=== PATIENT | female | born 1945 | race American Indian/Alaskan Native ===

== ENCOUNTER 2017-11-24 19:15 | Emergency (ER) | payer MEDICARE ==
[2017-11-24 20:14] LABS: Basophils % (Auto) 0.4 % (0.0-1.8); Eosinophils # (Auto) 0.1 K/mm3 (0.0-0.4); Eosinophils % (Auto) 0.6 % (0.0-4.3); Hematocrit 38.9 % (30.3-42.9); Hemoglobin 13.5 gm/dl (10.1-14.3); Lymphocytes # (Auto) 2.1 K/mm3 (1.2-5.4); Lymphocytes % (Auto) 16.4 % (13.4-35.0); Mean Corpuscular HGB Conc 35 % (30-34); Mean Corpuscular Hemoglobin 31 pg (28-32); Mean Corpuscular Volume 91 fl (79-97); Monocytes # (Auto) 0.7 K/mm3 (0.0-0.8); Monocytes % (Auto) 5.5 % (0.0-7.3); Platelet Count 212 K/mm3 (140-440); Red Blood Count 4.29 M/mm3 (3.65-5.03); Red Cell Distribution Width 13.6 % (13.2-15.2)
[2017-11-24 20:27] LABS: Albumin 4.2 g/dL (3.9-5); Calcium 9.7 mg/dL (8.4-10.2)
[2017-11-25 00:58] LABS: Bilirubin,Urine NEG (Negative); Blood,Urine NEG (Negative); Color,Urine Yellow (Yellow); Hyaline Casts,Urine 4 /LPF; Mucus,Urine FEW /HPF; Protein,Urine <15 mg/dL mg/dL (Negative); Urobilinogen,Urine < 2.0 mg/dL (<2.0)
--- NOTE | 2017-11-25 02:40 | Emergency Department Report ---
ED Abdominal Pain HPI - General Chief Complaint: Abdominal Pain Stated Complaint: ABD PAIN Time Seen by Provider: 11/25/17 02:40 Source: patient Mode of arrival: Wheelchair Limitations: No Limitations - History of Present Illness Initial Comments: Patient presents with primary complaint of constipation. She had taken some Ex- Lax earlier in the day to help stimulate, and she routinely takes stool softeners, but had not had any passage of bowel movement after taking Ex-Lax, and came in for additional treatment, but while waiting for examination, she had a good bowel movement with relief of her discomfort. She's had a history of recurrent constipation, for which she takes stool softeners, and then takes a stimulant whenever she feels the need. She's not had any fever chills or diaphoresis, no nausea or vomiting, and no other difficulty. Since she is spontaneously had a bowel movement, which was firm, brown, without blood, and with significant relief of discomfort, she feels ready to go. When offered medication for nausea or pain, she accepts offer for some analgesia. -: Gradual, days(s) Location: periumbilical (lower abdomen) Radiation: none Severity scale (0 -10): 5 Quality: cramping, aching Improves With: bowel movement Worsens With: nothing Associated Symptoms: denies other symptoms - Related Data Home Medications Medication Instructions Recorded Confirmed Last Taken Aspirin 81 mg PO QAM 11/25/17 11/25/17 Unknown AtorvaSTATin [Lipitor] 10 mg PO QHS 11/25/17 11/25/17 Unknown Hydrochlorothiazide [HCTZ] 25 mg PO DAILY 11/25/17 11/25/17 Unknown Levothyroxine Sodium 88 mcg PO DAILY 11/25/17 11/25/17 Unknown Lisinopril [Zestril TAB] 20 mg PO DAILY 11/25/17 11/25/17 Unknown Metoprolol Succinate 100 mg PO DAILY 11/25/17 11/25/17 Unknown amLODIPine [Norvasc] 10 mg PO DAILY 11/25/17 11/25/17 Unknown cloNIDine [Catapres] 0.1 mg PO DAILY 11/25/17 11/25/17 Unknown Previous Rx's Medication Instructions Recorded Last Taken Type Nitrofurantoin Monohyd/M-Cryst 100 mg PO BID #14 cap 11/25/17 Unknown Rx [Macrobid 100 mg Capsule] traMADol [Ultram 50 MG tab] 50 mg PO Q6HR PRN #10 tablet 11/25/17 Unknown Rx Allergies Allergy/AdvReac Type Severity Reaction Status Date / Time No Known Allergies Allergy Verified 11/24/17 19:44 ED Review of Systems ROS: Stated complaint: ABD PAIN Other details as noted in HPI Comment: All other systems reviewed and negative Constitutional: no symptoms reported ENT: denies: ear pain, throat pain Respiratory: denies: cough, shortness of breath, wheezing Cardiovascular: denies: chest pain, palpitations Endocrine: no symptoms reported Gastrointestinal: abdominal pain (lower abdomen), constipation. denies: hematemesis, melena, hematochezia Genitourinary: denies: urgency, dysuria, discharge Musculoskeletal: denies: back pain, joint swelling, arthralgia Skin: denies: rash, lesions Neurological: denies: headache, weakness, paresthesias Psychiatric: denies: anxiety, depression ED Past Medical Hx - Past Medical History Previous Medical History?: Yes Hx Hypertension: Yes Additional medical history: kidney and thyroid disease - Surgical History Additional Surgical History: thyroid - Social History Smoking Status: Never Smoker Substance Use Type: None - Medications Home Medications: Home Medications Medication Instructions Recorded Confirmed Last Taken Type Aspirin 81 mg PO QAM 11/25/17 11/25/17 Unknown History AtorvaSTATin [Lipitor] 10 mg PO QHS 11/25/17 11/25/17 Unknown History Hydrochlorothiazide [HCTZ] 25 mg PO DAILY 11/25/17 11/25/17 Unknown History Levothyroxine Sodium 88 mcg PO DAILY 11/25/17 11/25/17 Unknown History Lisinopril [Zestril TAB] 20 mg PO DAILY 11/25/17 11/25/17 Unknown History Metoprolol Succinate 100 mg PO DAILY 11/25/17 11/25/17 Unknown History Nitrofurantoin Monohyd/M-Cryst 100 mg PO BID #14 cap 11/25/17 Unknown Rx [Macrobid 100 mg Capsule] amLODIPine [Norvasc] 10 mg PO DAILY 11/25/17 11/25/17 Unknown History cloNIDine [Catapres] 0.1 mg PO DAILY 11/25/17 11/25/17 Unknown History traMADol [Ultram 50 MG tab] 50 mg PO Q6HR PRN #10 tablet 11/25/17 Unknown Rx ED Physical Exam - General Limitations: No Limitations General appearance: in no apparent distress - Head Head exam: Present: atraumatic, normocephalic - Eye Eye exam: Present: normal appearance - Neck Neck exam: Present: normal inspection - Respiratory Respiratory exam: Present: normal lung sounds bilaterally. Absent: respiratory distress, wheezes, rales, rhonchi - Cardiovascular Cardiovascular Exam: Present: regular rate, normal heart sounds - GI/Abdominal GI/Abdominal exam: Present: soft - Rectal Rectal exam: Present: deferred (patient declined offer for rectal examination to rule out impaction) - Extremities Exam Extremities exam: Present: normal inspection - Back Exam Back exam: Present: normal inspection - Neurological Exam Neurological exam: Present: alert, oriented X3, CN II-XII intact - Psychiatric Psychiatric exam: Present: normal affect, normal mood - Skin Skin exam: Present: warm, dry ED Course Vital Signs 11/24/17 11/25/17 19:44 00:34 Temperature 98 F 98.1 F Pulse Rate 77 86 Respiratory 16 17 Rate Blood Pressure 141/63 Blood Pressure 159/72 [Left] O2 Sat by Pulse 98 100 Oximetry ED Medical Decision Making - Lab Data Result diagrams: 11/24/17 19:56 11/24/17 19:56 - Medical Decision Making Patient has had relief of her primary complaint, that of constipation, with production of a good solid bowel movement, although we have found a urinary tract infection, and we'll treat with Macrodantin, as patient reports that she has some decreased kidney function, and prefers to avoid Bactrim. Initial dose of Macrobid given in emergency department. She was also given a dose of bentyl for discomfort - Differential Diagnosis constipation, Critical Care Time: No Critical care attestation.: If time is entered above; I have spent that time in minutes in the direct care of this critically ill patient, excluding procedure time. ED Disposition Clinical Impression: Constipation Qualifiers: Constipation type: unspecified constipation type Qualified Code(s): K59.00 - Constipation, unspecified UTI (urinary tract infection) Qualifiers: Urinary tract infection type: acute cystitis Disposition: TO HOME OR SELFCARE Is pt being admited?: No Does the pt Need Aspirin: No Condition: Stable Instructions: Abdominal Pain (ED) Prescriptions: Nitrofurantoin Monohyd/M-Cryst [Macrobid 100 mg Capsule] 100 mg PO BID #14 cap traMADol [Ultram 50 MG tab] 50 mg PO Q6HR PRN #10 tablet PRN Reason: Pain Referrals: PRIMARY CARE,MD [Primary Care Provider] - 3-5 Days Time of Disposition: 02:50
[2017-11-25] MEDS ORDERED: BENTYL PO ONE (02:52)
[2017-11-25] MEDS ORDERED: MACROBID PO ONE (02:52)
[2017-11-25 03:02] VITALS: BP 146/74
== END 2017-11-25 03:03 | disposition home or self-care (01) ==
LOC: ED 19:15
DX: N39.0 Urinary tract infection, site not specified (principal); K59.00 Constipation, unspecified; I10 Essential (primary) hypertension; Z79.82 Long term (current) use of aspirin
CPT/HCPCS: 36415; 80053; 81001; 85025; 99283

== ENCOUNTER 2019-10-28 09:20 | Emergency (ER) | payer MEDICARE ==
--- NOTE | 2019-10-28 09:33 | Emergency Department Report ---
ED Fall HPI - General Stated Complaint: FALL Time Seen by Provider: 10/28/19 09:27 Source: patient, EMS Mode of arrival: Stretcher Limitations: No Limitations - History of Present Illness Initial Comments: Mrs. Mills is a 74-year-old female with a history of hypertension, chronic kidney disease, dyslipidemia and thyroid disease who presents after a ground- level fall. She was walking in a grocery store parking lot when she tripped and fell. She fell straight onto her face without loss of consciousness. She has a bloody lip. Her top dentures were damage as result of the impact. She denies neck pain. She denies loss of consciousness. She has mild headache. She also has right knee pain. She was transported by EMS. Her drove her to the grocery store. He witnessed the fall. MD Complaint: fall -: Sudden, This morning Fall From: standing When Fall Occurred: just prior to arrival Fall Witnessed: yes, by family Place Fall Occurred: other (Grocery store parking lot) Loss of Consciousness: none Prolonged Down Time?: no Symptoms Prior to Fall: none Location: head, face, other (Right knee) Location - Extremities: Right: Knee Severity: mild Context: tripped/slipped Associated Symptoms: headache - Related Data Home Medications Medication Instructions Recorded Confirmed Last Taken Aspirin 81 mg PO QAM 11/25/17 11/25/17 Unknown AtorvaSTATin [Lipitor] 10 mg PO QHS 11/25/17 11/25/17 Unknown Levothyroxine Sodium 88 mcg PO DAILY 11/25/17 11/25/17 Unknown Metoprolol Succinate 100 mg PO DAILY 11/25/17 11/25/17 Unknown amLODIPine 10 mg PO DAILY 11/25/17 11/25/17 Unknown cloNIDine [Catapres] 0.1 mg PO DAILY 11/25/17 11/25/17 Unknown hydroCHLOROthiazide [HCTZ] 25 mg PO DAILY 11/25/17 11/25/17 Unknown lisinopriL [Zestril TAB] 20 mg PO DAILY 11/25/17 11/25/17 Unknown Previous Rx's Medication Instructions Recorded Last Taken Type Nitrofurantoin Monohyd/M-Cryst 100 mg PO BID #14 cap 11/25/17 Unknown Rx [Macrobid 100 mg Capsule] traMADoL [Ultram 50 MG tab] 50 mg PO Q6HR PRN #10 tablet 11/25/17 Unknown Rx Allergies Allergy/AdvReac Type Severity Reaction Status Date / Time No Known Allergies Allergy Verified 10/28/19 09:55 ED Review of Systems ROS: Stated complaint: FALL Other details as noted in HPI Constitutional: denies: fever, malaise Respiratory: denies: cough, shortness of breath Cardiovascular: denies: chest pain Gastrointestinal: denies: abdominal pain, nausea, vomiting Skin: lesions Neurological: headache ED Past Medical Hx - Past Medical History Previous Medical History?: Yes Hx Hypertension: Yes Additional medical history: kidney and thyroid disease - Surgical History Additional Surgical History: thyroid - Social History Smoking Status: Never Smoker Substance Use Type: None - Medications Home Medications: Home Medications Medication Instructions Recorded Confirmed Last Taken Type Aspirin 81 mg PO QAM 11/25/17 11/25/17 Unknown History AtorvaSTATin [Lipitor] 10 mg PO QHS 11/25/17 11/25/17 Unknown History Levothyroxine Sodium 88 mcg PO DAILY 11/25/17 11/25/17 Unknown History Metoprolol Succinate 100 mg PO DAILY 11/25/17 11/25/17 Unknown History Nitrofurantoin Monohyd/M-Cryst 100 mg PO BID #14 cap 11/25/17 Unknown Rx [Macrobid 100 mg Capsule] amLODIPine 10 mg PO DAILY 11/25/17 11/25/17 Unknown History cloNIDine [Catapres] 0.1 mg PO DAILY 11/25/17 11/25/17 Unknown History hydroCHLOROthiazide [HCTZ] 25 mg PO DAILY 11/25/17 11/25/17 Unknown History lisinopriL [Zestril TAB] 20 mg PO DAILY 11/25/17 11/25/17 Unknown History traMADoL [Ultram 50 MG tab] 50 mg PO Q6HR PRN #10 tablet 11/25/17 Unknown Rx ED Physical Exam - General General appearance: alert, in no apparent distress - Head Head exam: Present: normocephalic, other (Abrasion upper lip edematous lip without laceration mildly edematous nose 3 x 4 cm frontal hematoma) - Eye Eye exam: Present: normal appearance - ENT ENT exam: Present: mucous membranes moist - Neck Neck exam: Present: normal inspection, full ROM. Absent: tenderness, meningismus, other - Respiratory Respiratory exam: Present: normal lung sounds bilaterally. Absent: respiratory distress, wheezes, rales, rhonchi - Cardiovascular Cardiovascular Exam: Present: regular rate, normal rhythm, normal heart sounds. Absent: systolic murmur, diastolic murmur, rubs, gallop - GI/Abdominal GI/Abdominal exam: Present: soft. Absent: distended, tenderness, guarding, rebound - Extremities Exam Extremities exam: Present: other (Right knee mildly edematous with small abrasion) - Neurological Exam Neurological exam: Present: alert, oriented X3 - Psychiatric Psychiatric exam: Present: normal affect, normal mood - Skin Skin exam: Present: warm, dry, intact, normal color. Absent: rash ED Course Vital Signs 10/28/19 09:25 Temperature 98.2 F Pulse Rate 79 Respiratory 20 Rate Blood Pressure 146/73 [Left] O2 Sat by Pulse 99 Oximetry ED Medical Decision Making - Radiology Data Radiology results: report reviewed Right knee radiographs: No fracture no subluxation no acute findings according radiology impression CT head CT face without evidence of trauma. - Medical Decision Making 1. Closed head injury without LOC CT imaging indicated due to age. 2. Facial lip contusion CT face without evidence of fracture 3. Right knee sprain no fracture on radiographs no dislocation extremity is neurovascularly intact Critical care attestation.: If time is entered above; I have spent that time in minutes in the direct care of this critically ill patient, excluding procedure time. ED Disposition Clinical Impression: Fall from ground level, Facial contusion, Closed head injury, Right knee injury Disposition: DC-01 TO HOME OR SELFCARE Is pt being admited?: No Does the pt Need Aspirin: No Condition: Stable Additional Instructions: Please return to the emergency department if you have any new concerns.
[2019-10-28] MEDS ORDERED: ACETAMINOPHEN 325 MG TAB PO ONE (09:35)
--- NOTE | 2019-10-28 10:35 | XRay Report ---
RIGHT KNEE 4 VIEWS INDICATION / CLINICAL INFORMATION: Right knee swelling after ground-level fall COMPARISON: None available. FINDINGS: BONES and JOINT(S): No acute fracture or subluxation. 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 Mild arthritis is also noted along the tibial eminences. SOFT TISSUES: No significant abnormality. ADDITIONAL FINDINGS: None. IMPRESSION: 1. No acute findings. Signer Name: Tawanda Saucedo MD Signed: 10/28/2019 10:31 AM Workstation Name: [id number]
--- NOTE | 2019-10-28 10:58 | Cat Scan Report ---
CT HEAD WITHOUT CONTRAST INDICATION : Closed head injury with frontal hematoma after fall today. TECHNIQUE: Axial, coronal and sagittal CT imaging was performed from the skull apex through the skul l base without contrast. All CT scans at this location are performed using CT dose reduction for ALA RA by means of automated exposure control. COMPARISON: None available. FINDINGS: PARENCHYMA: No mass, midline shift, hemorrhage, extraaxial collection or acute territorial infarctio n. VENTRICLES: Symmetric and normal in size. SOFT TISSUES: There is a small midline frontal scalp hematoma. The remaining included soft tissues a nd the orbits are unremarkable. BONES: No acute osseous abnormality. SINUSES: No significant abnormality. ADDITIONAL FINDINGS: None. IMPRESSION: 1. No acute intracranial abnormality. 2. Small frontal scalp hematoma. Signer Name: Tawanda Saucedo MD Signed: 10/28/2019 10:54 AM Workstation Name: [id number]
--- NOTE | 2019-10-28 11:23 | Cat Scan Report ---
CT facial bones wo con INDICATION / CLINICAL INFORMATION: 74 years Female; Facial contusion ground-level fall nasal swelling. TECHNIQUE: Thin cut axial images obtained to the facial region. Sagittal and coronal reconstructions performed. All CT scans at this location are performed using CT dose reduction for ALARA by means of automated e xposure control. COMPARISON: None available. FINDINGS: Minimal subcutaneous soft tissue swelling seen in the frontal region. No signs of underlying facial b one or calvarial fracture. Minimal mucosal thickening seen in the ethmoids. Orbits and surrounding soft tissues are otherwise grossly normal. IMPRESSION: 1. No signs of acute bony facial trauma. Signer Name: Malik Rosa MD, III Signed: 10/28/2019 11:19 AM Workstation Name: [id number]
[2019-10-28 11:59] VITALS: BP 148/63
== END 2019-10-28 11:40 | disposition home or self-care (01) ==
LOC: ED 09:20
DX: S83.8X1A Sprain of other specified parts of right knee, initial encounter (principal); S00.83XA Contusion of other part of head, initial encounter; I10 Essential (primary) hypertension; Z79.899 Other long term (current) drug therapy; Z88.6 Allergy status to analgesic agent; W01.0XXA Fall on same level from slipping, tripping and stumbling without subsequent striking against object, initial encounter; Y93.89 Activity, other specified; Y92.89 Other specified places as the place of occurrence of the external cause; Y99.8 Other external cause status
CPT/HCPCS: 70450; 70486